=== PATIENT | male | born 1970 | race Caucasian/White ===

== ENCOUNTER → 2018-04-16 | Outpatient (CLI) | payer OTHER | LOC: FIMAGING 13:02 | PROVIDERS: ATTEND Orthopaedic Surgery | DX: S43.431A Superior glenoid labrum lesion of right shoulder, initial encounter (principal); M24.812 Other specific joint derangements of left shoulder, not elsewhere classified; M75.52 Bursitis of left shoulder ==

== ENCOUNTER 2018-10-03 17:10 | Emergency (ER) | payer OTHER ==
[2018-10-03] MEDS ORDERED: NS 1,000 ML IV ONE (17:50)
--- NOTE | 2018-10-03 18:06 | EDPHY ---
H & P Stated Complaint: Diarrhea,liquid Tue-Wed, with today abd cramping,denies fever but chills Time Seen by Provider: 10/03/18 17:16 HPI/ROS: 47-year-old male presents complaining of diarrhea and crampy abdominal pain for the last 3 days. No unusual food intake. No friends or family who are currently ill. No nausea or vomiting and no fever. He has not noticed blood in his diarrhea. Review of systems As per HPI General no fever no chills no weakness HEENT no eye pain no eye discharge. No eye redness, no sore throat Respiratory no cough, no shortness of breath Cardiac no chest pain, no peripheral edema GI positive crampy abdominal pain, positive diarrhea, no constipation, no nausea , no vomiting no flank pain, no hematuria, no dysuria Musculoskeletal no myalgias, no joint pain Heme no easy bruising, no easy bleeding Endo no polyuria, no polydipsia Skin no rashes, no pruritus Neuro no syncope, no dizziness, no headaches Psych is no suicidal ideation, no homicidal ideation Source: Patient, Family Exam Limitations: No limitations - Personal History Current Tetanus Diphtheria and Acellular Pertussis (TDAP): Unsure - Medical/Surgical History Hx Asthma: No Hx Chronic Respiratory Disease: No Hx Diabetes: No Hx Cardiac Disease: No Hx Renal Disease: No Hx Cirrhosis: No Hx Alcoholism: No Hx HIV/AIDS: No Hx Splenectomy or Spleen Trauma: No Other PMH: Med hx-none. Surg-left ankle - Family History Significant Family History: No pertinent family hx - Social History Smoking Status: Never smoked Alcohol Use: Occasionally Drug Use: None - Physical Exam Exam: 47-year-old male HEENT atraumatic normocephalic, extraocular muscles intact, anicteric Oropharynx negative for erythema negative exudate, tolerating her own secretions Neck supple no meningismus Lungs clear to auscultation bilaterally Heart regular rate and rhythm without murmur rub or gallop Abdomen nondistended normoactive bowel sounds soft nontender, no guarding no rebound, no masses Back no CVA tenderness, no step-offs, no spinal tenderness Extremities no cyanosis clubbing or edema Neuro alert and oriented, no focal deficits Constitutional: Initial Vital Signs Temperature (C) 36.7 C 10/03/18 17:16 Heart Rate 47 L 10/03/18 17:16 Respiratory Rate 16 03/07/19 17:16 Blood Pressure 138/79 H 10/03/18 17:16 O2 Sat (%) 100 10/03/18 17:16 O2 Delivery Mode Room Air Allergies/Adverse Reactions: No Known Allergies Allergy (Verified 10/03/18 17:16) Home Medications: Medication Instructions Recorded Dicyclomine [Bentyl 20 MG (*)] 20 mg PO Q8 PRN #21 tab 10/03/18 Medical Decision Making ED Course/Re-evaluation: Patient seen and evaluated for diarrhea and crampy abdominal pain. IV established CBC, CMP, lactate ordered GI stool pathogen panel ordered 1 L normal saline ordered labs all wnl stool results pending pt had some crampy abdominal pain, given dicyclomine 20 mg po Imp diarrhea, likely viral Plan Home given rx for Bentyl stool pathogen panel pending f/u pcp given education on reasons to return-fever, worsened pain, vomiting Differential Diagnosis: Differential diagnosis considered but not limited to: Infectious diarrhea, nonspecific diarrhea, irritable bowel syndrome, diverticulitis, appendicitis, a viral gastroenteritis - Data Points Laboratory Results: 10/03/18 10/03/18 18:19 18:17 POC Sodium 140 mEq/L mEq/L (135-145) POC Potassium 3.5 mEq/L mEq/L (3.3-5.0) POC Chloride 103.0 mEq/L mEq/L (97-110) POC Total CO2 29 mEq/L mEq/L (22-31) POC BUN 8 mg/dL mg/dL (7-23) POC Creatinine 1.0 mg/dL mg/dL (0.7-1.3) POC Glucose 118 mg/dL H mg/dL (70-100) POC Lactic Acid Dustin 1.5 mmol/L mmol/L (0.7-2.1) POC Calcium 9.8 mg/dL mg/dL (8.5-10.4) POC Total Bilirubin 1.1 mg/dL mg/dL (0.1-1.4) POC AST 26 IU/L IU/L (17-59) POC ALT 17 IU/L L IU/L (21-72) POC Alk Phosphatase 34 IU/L L IU/L (38-126) POC Total Protein 7.0 g/dL g/dL (6.3-8.2) POC Albumin 3.8 g/dL g/dL (3.5-5.0) Medications Given: Discontinued Medications Dicyclomine HCl (Bentyl) 20 mg PO EDNOW ONE Stop: 10/03/18 18:55 Last Admin: 10/03/18 19:03 Dose: 20 mg Sodium Chloride (Ns) 1,000 mls @ 0 mls/hr IV ONCE ONE PRN Reason: Wide Open Stop: 10/03/18 17:51 Last Admin: 10/03/18 18:05 Dose: 1,000 mls Point of Care Test Results: CBC CBC Collection Date 10/03/18 CBC Collection Time 17:55 WBC 5.26 RBC 4.92 HGB 15.2 HCT 45.3 PLT 202 Neut # 3.17 Neut 60.2 LYMPH # 1.63 LYMPH 31.0 MCV 92.1 Chemistry 10/03/18 18:17 POC Sodium 140 mEq/L mEq/L (135-145) POC Potassium 3.5 mEq/L mEq/L (3.3-5.0) POC Chloride 103.0 mEq/L mEq/L (97-110) POC Total CO2 29 mEq/L mEq/L (22-31) POC BUN 8 mg/dL mg/dL (7-23) POC Creatinine 1.0 mg/dL mg/dL (0.7-1.3) POC Glucose 118 mg/dL H mg/dL (70-100) POC Calcium 9.8 mg/dL mg/dL (8.5-10.4) POC Total Bilirubin 1.1 mg/dL mg/dL (0.1-1.4) POC AST 26 IU/L IU/L (17-59) POC ALT 17 IU/L L IU/L (21-72) POC Alk Phosphatase 34 IU/L L IU/L (38-126) POC Total Protein 7.0 g/dL g/dL (6.3-8.2) POC Albumin 3.8 g/dL g/dL (3.5-5.0) Blood Gas/Lactic Acid-Venous 10/03/18 18:19 POC Lactic Acid Dustin 1.5 mmol/L mmol/L (0.7-2.1) Departure - Departure Disposition: Home, Routine, Self-Care Clinical Impression: Diarrhea Condition: Good Instructions: Dicyclomine (By mouth), Acute Diarrhea (ED) Referrals: Daryl Da Silva MD [Primary Care Provider] - As per Instructions Prescriptions: Dicyclomine [Bentyl 20 MG (*)] 20 mg PO Q8 PRN #21 tab PRN Reason: Gi Distress
[2018-10-03] MEDS ORDERED: DICYCLOMINE 10 MG CAP PO ONE (18:54)
[2018-10-03 19:11] VITALS: BP 121/67
== END 2018-10-03 19:30 | disposition home or self-care (01) ==
LOC: CED 17:10
DX: R19.7 Diarrhea, unspecified (principal); E86.9 Volume depletion, unspecified
CPT/HCPCS: 80053-ER; 83605-ER; 96360-ER; 99284-ER